=== PATIENT | male | born 1955 | race Caucasian/White ===

== ENCOUNTER 2016-11-18 11:51 | Emergency (ER) | payer OTHER ==
[~2016-11-18] VITALS: Ht 177.8 cm; Wt 82.6 kg
[~2016-11-18 11:51] MED LIST: PERCOCET 5-3251 EACH PO
--- NOTE | 2016-11-18 12:25 | ED GENERAL ADULT ---
History of Present Illness General Chief Complaint: Chest Pain Stated Complaint: CP Source: patient Exam Limitations: no limitations Vital Signs & Intake/Output Vital Signs & Intake/Output ED Intake and Output 11/19 0000 11/18 1200 Intake Total 0 Output Total Balance 0 Intake, IV 0 Patient 182 lb Weight Allergies Coded Allergies: erythromycin base (UNKNOWN 06/11/16) ketorolac (From TORADOL) (AURA 06/12/16) Reconcile Medications Lisinopril 10 MG TABLET 1 TAB PO DAILY HTN Triage Note: PT STATES HE IS FEELING CHEST PAIN LEFT BREAST FOR FEW MONTHS NOW. PT STATES IT FEELS LIKE SOMETHING IS BOUNCING AND THEN HE FEELS VERY WEAK. PT DENIES N/V STATES HE DOES HAVE HIGH CHOLESTEROL AND HE IS HAVING NUMBNESS TO HIS LEFT SHOULDER. Triage Nurses Notes Reviewed? yes Onset: Gradual Duration: waxing and waning, 3 MONTHS Timing: no prior history Injury Environment: home Severity: moderate Severity Numbers: 6 HPI: Patient is a 61-year-old male with history of hypertension, hyperlipidemia who is not currently on any medications presenting to the emergency Department chief complaint of left-sided rib pain and left shoulder pain that been going on for the past 3 months intermittently. He reports that initially when symptoms started it was about 2 times a week and then progressed to more times a week. Denies any nausea or vomiting. He does report associated malaise and weakness. He reports that he does have long-standing history of being physical and working with his hands. He has been seeing his doctor for the same complaints and they have done MRIs of his chest and he scheduled for an MRI of his neck and shoulder this coming Wednesday. Denies any new injury. He does report left-sided neck achiness that's worse with movement. Denies any fevers or chills or headaches. No visual changes. Denies any palpitations, denies feeling like he's skipping any beets or his heart is faster than normal. Denies any lower extremity edema. Reporting that he feels like the skin over the left rib area is spasming. Symptoms are intermittent and lasts seconds. He also reports spasming in his left upper thigh. (ESTER LEONARD) Past History Travel History Traveled to [place] past 21 day No Medical History Any Pertinent Medical History? see below for history Neurological: NONE EENT: NONE Cardiovascular: hypertension, hyperlipidemia Respiratory: NONE Gastrointestinal: HIATAL HERNIA Hepatic: NONE Renal: NONE Musculoskeletal: NONE Psychiatric: NONE Endocrine: NONE Blood Disorders: NONE Cancer(s): NONE INSURANCE ASSOCIATE/Reproductive: NONE Surgical History Surgical History: none Psychosocial History What is your primary language [place] Tobacco Use: Never used ETOH Use: denies use Illicit Drug Use: denies illicit drug use Family History Hx Contributory? No (ESTER LEONARD) Review of Systems Review of Systems Constitutional: Reports: see HPI, weakness. Comments Review of systems: See HPI, All other systems negative. Constitutional, no chills fever or weight loss HEENT: No visual changes no sore throat no congestion Cardiovascular: No palpitation , orthopnea or ankle swelling Skin, no jaundice no rashes Respiratory: No dyspnea cough sputum or hemoptysis GI: No nausea no vomiting : No dysuria No hematuria Muscle skeletal: no back pain, no neck pain, Neurologic: No numbness no confusion MATTA Psych: No stress anxiety or depression,. Heme/endocrine: No bruising no bleeding no polyuria or polydipsia Immunology: No splenectomy or history of AIDS (ESTER LEONARD) Physical Exam Physical Exam General Appearance: well developed/nourished, no apparent distress, alert, awake , comfortable Comments: Well-developed well-nourished person in no acute distress HEENT: Pupils equally round and reactive to light and accommodation. Nose is atraumatic. External auditory canal and Tympanic membranes clear. Pharynx normal. No swelling or edema. Neck: Supple, no lymphadenopathy, normal range of motion without pain, TENDER TO PALPATION OVER PARAPSPINAL MUSCLES BILATERALLY. Full range of motion. Negative meningeal signs. Back: Nontender, no CVA tenderness. Full range of motion Cardiovascular: Regular rate and rhythms no murmurs rubs or gallops, normal JVP Respiratory: Chest nontender. No respiratory distress.breath sounds clear to auscultation bilaterally. No rashes identified over the chest. Abdomen: Soft, nontender nondistended, no appreciable organomegaly. Normal bowel sounds. No ascites Extremity: No edema, no calf tenderness to palpation, normal and equal pulses both in the upper and lower extremities. MUSCLE STRNEGTH IS 5/5 IN UPPER AND LOWER EXT. Neuro: Alert oriented x3, motor sensory normal, cranial nerves II through XII grossly intact. Skin: No appreciable rash on exposed skin, skin is warm and dry. Psych: Mood and affect is normal, memory and judgment is normal. Core Measures ACS in differential dx? Yes CVA/TIA Diagnosis: No Severe Sepsis Present: No Septic Shock Present: No (ESTER LEONARD) Progress Differential Diagnoses I considered the following diagnoses in my evaluation of the patient: Pulmonary embolism, ACS, unstable angina, stable angina, muscle strain, cervical radiculopathy Plan of Care: Orders Procedure Date/time Status TROPONIN LEVEL 11/18 1500 Complete EKG 11/18 1500 Active TROPONIN LEVEL 11/18 1246 Complete D-DIMER 11/18 1246 Complete COMPREHENSIVE METABOLIC PANEL 11/18 1246 Complete CHOLESTEROL 11/18 1246 Complete CBC WITHOUT DIFFERENTIAL 11/18 1246 Complete EKG 11/18 1152 Active Laboratory Tests 11/18/16 1500: Troponin I < 0.01 11/18/16 1300: Anion Gap 10, Estimated GFR > 60, BUN/Creatinine Ratio 22.2, Glucose 98, Calcium 10.2, Total Bilirubin 0.9, AST 35, ALT 56, Alkaline Phosphatase 103, Troponin I < 0.01, Total Protein 7.8, Albumin 4.7, Globulin 3.1, Albumin/Globulin Ratio 1.5 , Cholesterol 258 H, D-Dimer < 200, CBC w Diff NO MAN DIFF REQ, RBC 5.40, MCV 89.2, MCH 30.0, RDW 12.8, MPV 8.2, Gran % 62.3, Lymphocytes % 26.6, Monocytes % 6.9, Eosinophils % 3.7, Basophils % 0.5, Absolute Granulocytes 2.9, Absolute Lymphocytes 1.2, Absolute Monocytes 0.3, Absolute Eosinophils 0.2, Absolute Basophils 0, PUBS MCHC 33.7 Diagnostic Imaging: Viewed by Me: Radiology Read. Discussed w/RAD: Radiology Read. CXR Impression: no acute abnormality, no infiltrates, normal size heart, normal mediastinum Initial ED EKG: SINUS RHYTHM AT 68 BPM, Repeat EKG: unchanged Comments: Patient is hypertensive on arrival in no acute distress. Pain is coming and going. Pain is nonspecific. Been going on for the past 3 months. Declined pain medication on arrival. Describes pain as spasming. Scheduled for MRI of the neck and shoulder on Wednesday. Patient informed of all lab work results and imaging study results. No changes with repeat EKG or troponin. Likely neuropathic in nature. Patient blood pressure was controlled with lisinopril 2 doses. Patient will be started on lisinopril 10 mg daily and follow-up with primary care physician to recheck blood pressure in the next several days. He'll return for worsening symptoms or concerns. Chest pain is nonspecific, troponins 2 were negative and pain has been going on and off for the past 3 months. Patient will follow up with PCP. Discussed with Dr. RIOJAS and he agrees to plan. (ESTER LEONARD) Departure Departure Time of Disposition: 1632 Disposition: HOME OR SELF CARE Condition: Stable Clinical Impression Primary Impression: Cervical radiculopathy Secondary Impressions: Rib pain on left side Ruled Out Impressions: Rib pain Referrals: UNKNOWN Additional Instructions: Follow-up with your primary care physician call to make an appointment. Take blood pressure medication as prescribed. Your primary care physician will need to recheck her pressure to see if the medication is working well [place]. Return for worsening symptoms or concerns. Take muscle relaxers as prescribed to help with neck pain and rib pain. Departure Forms: Customer Survey General Discharge Information Prescriptions: Current Visit Scripts Lisinopril 1 TAB PO DAILY #30 TAB (ESTER LEONARD) PA/MEDICAL DEVICE SALES REPRESENTATIVE Co-Sign Statement Statement: ED Attending supervision documentation- x I saw and evaluated the patient. I have also reviewed all the pertinent lab results and diagnostic results. I agree with the findings and the plan of care as documented in the PA's/MEDICAL DEVICE SALES REPRESENTATIVE's documentation. [] I have reviewed the ED Record and agree with the PA's/MEDICAL DEVICE SALES REPRESENTATIVE's documentation. [] Additions or exceptions (if any) to the PAs/MEDICAL DEVICE SALES REPRESENTATIVE's note and plan are summarized below: [] (SHINE SEN,JASMYN) Critical Care Note Critical Care Note Critical Care Time: non-applicable (ESTER LEONARD)
[2016-11-18 13:07] LABS: ABSOLUTE BASOPHIL COUNT 0 /CUMM (0.0-0.2); ABSOLUTE EOSINOPHIL COUNT 0.2 /CUMM (0.0-0.7); ABSOLUTE GRANULOCYTE CT 2.9 /CUMM (1.4-6.5); ABSOLUTE LYMPH COUNT 1.2 /CUMM (1.2-3.4); ABSOLUTE MONOCYTE COUNT 0.3 /CUMM (0.10-0.60); BASOPHIL % 0.5 % (0.0-2.0); EOSINOPHIL % 3.7 % (0-5); GRANULOCYTE % 62.3 % (42.2-75.2); HEMATOCRIT 48.2 % (42-52); MEAN CORPUSCULAR HGB CONC 33.7 G/DL (33.0-37.0); MEAN CORPUSCULAR VOLUME 89.2 FL (80.0-94.0); MEAN PLATELET VOLUME 8.2 FL (7.4-10.4); PLATELET COUNT 227 /CUMM (130-400); RBC DISTRIBUTION WIDTH 12.8 % (11.5-14.5); WHITE BLOOD CELL COUNT 4.6 /CUMM (4.8-10.8)
--- NOTE | 2016-11-18 13:39 | RADIOLOGY REPORT ---
EXAMINATION: XR CHEST CLINICAL INFORMATION: Cardiomegaly. Chest pain. COMPARISON: None TECHNIQUE: 2 views of the chest were obtained. FINDINGS: Cardiomediastinal silhouette is within normal limits. Lungs are clear. No evidence of pleural effusion. Visualized bony thorax is intact. IMPRESSION: No acute pulmonary disease.
[2016-11-18 16:36] VITALS: BP 160/90
[2016-11-18] MEDS ORDERED: LISINOPRIL10 M1 PO (16:39)
== END 2016-11-18 17:04 ==
LOC: ERH 11:51
PROVIDERS: Physician Assistant
DX: R07.81 Pleurodynia (principal); M54.12 Radiculopathy, cervical region
CPT/HCPCS: 93005; 93010